=== PATIENT | male | born 1985 | race Caucasian/White ===

== ENCOUNTER 2017-01-04 08:41 | Emergency (ER) | payer SELFPAY ==
[~2017-01-04] VITALS: Ht 177.8 cm; Wt 110.5 kg
[~2017-01-04 08:41] MED LIST: NO ROUTINE MEDS
--- OUTSIDE RECORDS SUMMARY | 2017-01-04 08:50 | XMS REPORT | Continuity of Care Document ---
Author Author [facility] Organization [facility] Address Unknown Phone Unavailable Support Name Relationship Address Phone EUGENE STROUD MD Caregiver [address] [place] [id number] Unavailable PEARL MATTHEW Next Of Kin [address] [place] [address] Insurance Providers Guarantor HermelindoIsrrael Address [address] [place] [address] Email [email or web address] Payer Self Pay Subscriber's Name HermelindoIsrrael Relationship 18 Self Advance Directives Directive Response Recorded Date/Time Advanced Directives Type None 10/06/16 12:47pm Chief Complaint and Reason for Visit Chief Complaint Puncture Wound Reason for Visit [id number] Problems Active Problems Medical Problem Onset Date Status Apical alveolar abscess Unknown Acute Gingivitis Unknown Acute Pain, dental Unknown Acute Past Problems Medical Problem Onset Date Frequent nosebleeds Unknown Skin abrasion Unknown Swelling of knee joint, left Unknown Medications Current Home Medications Medication Dose Units Route Directions Days Qty Instructions Start Date No Routine Meds 10/06/16 Past Home Medications Medication Directions Ordered Status Albuterol 17 Gm Aerosol, As Needed 07/24/11 Discontinued Clonazepam 1 Mg Tablet, 1 Mg Oral Twice A Day 07/24/11 Discontinued Metoprolol Succinate 25 Mg Tab.sr.24h, 25 Mg Oral As Needed 07/24/11 Discontinued Prosazine , 40 Bedtime 07/24/11 Discontinued Trazodone Hcl 50 Mg Tablet, 2 Tab Oral Bedtime 07/24/11 Discontinued Social History Social History Problem Response Recorded Date/Time Onset Date Status Hx Substance Use No 10/06/2016 12:47pm Not Applicable Not Applicable Hx Alcohol Use Y OCCASIONAL 10/06/2016 12:47pm Not Applicable Not Applicable Tobacco Usage smoke 03/08/2016 8:14am Not Applicable Not Applicable Query Response Start Date Stop Date Smoking Status Current every day smoker Hospital Discharge Instructions No hospital discharge instructions. Plan of Care Discharge Date 10/06/16 1:05pm Disposition 01 DISCHARGED HOME, SELF-CARE Condition at Discharge Stable Instructions/Education Provided DI for Abrasion Prescriptions See Medication Section Additional Instructions/Education Your tetanus was updated today. I do want you to keep the skin clean and dry. If any increase in redness/tenderness/or drainage then please return to ER or follow up with your primary care provider. Care Plan and Goals Physician Care Plan Problem:Skin abrasion, TDAP update Goal: Follow up with primary care provider Instructions: Take medications and follow care plan as discussed/written Functional Status No functional status results. 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 Given Tdap 10/06/16 Administered 1 [id number] [place] [employer] 10/06/16 Query Response on File Recorded Date/Time Hx Tetanus, Diptheria, Pertussis Y 07/24/11 12/19/12 9:21am Hx Tetanus Diptheria Y 10/06/2016 10/06/16 1:01pm Hx Tetanus, Diptheria, Pertussis Y 07/24/11 12/19/12 9:21am Tetanus Diptheria Vaccine History UNKNOWN-NEEDS UPDATE 10/06/16 12:47pm Tdap Vaccine Hx GIVEN TODAY 10/06/16 1:01pm Vital Signs Acute Vital Signs Vital Response Date/Time Temperature (Fahrenheit) 98.5 deg F (96.8 - 99.1) 10/06/2016 1:05pm Temperature (Calculated Celsius) 36.01380 degrees C (36.0 - 37.3) 10/06/2016 1:05pm Pulse Rate (adult) 89 bpm (60 - 100) 10/06/2016 1:05pm Respiratory Rate 16 breaths/min (10 - 20) 10/06/2016 1:05pm O2 Sat by Pulse Oximetry 97 % (90 - 100) 10/06/2016 1:05pm Blood Pressure 144/85 mm Hg 10/06/2016 1:05pm Height (Feet) 5 feet 10/06/2016 12:47pm Height (Inches) 10.00 inches 10/06/2016 12:47pm Weight (Kilograms) 113.900 kg 10/06/2016 12:47pm Body Mass Index (BMI) 36.0 10/06/2016 12:47pm Results No known relevant diagnostic tests, laboratory data and/or discharge summary. Procedures No known history of procedures. Encounters Encounter Location Arrival/Admit Date Discharge/Depart Date Attending Provider Departed Emergency Room [facility] 10/06/16 12:39pm 10/06/16 1: 05pm EUGENE STROUD MD Recent Diagnosis
[2017-01-04 08:55] VITALS: Ht 177.8 cm; Wt 110.5 kg
--- NOTE | 2017-01-04 10:15 | NUR ---
PROVIDER DR. KENDALL IN ROOM WITH PT.
--- NOTE | 2017-01-04 10:24 | NUR ---
PROVIDER DR. Alexia KENDALL IN ROOM WITH PT.
[2017-01-04] MEDS ORDERED: ORPHENADRINE 60mg/2ml INJECTION IM ONE (10:30)
[2017-01-04] MEDS ORDERED: KETOROLAC 60mg/2ml INJECTION IM ONE (10:30)
--- NOTE | 2017-01-04 10:31 | ERPDOC ---
Departure Disposition Decision Date: Jan 04, 2017 Disposition Decision Time: 11:44 Disposition: 01 DISCHARGED HOME, SELF-CARE Impression Impression Impression: Primary Impression: Back pain Back pain location: low back pain Chronicity: acute Back pain laterality: right Sciatica presence: without sciatica Qualified Codes: M54.5 - Low back pain Additional Impression: Lumbar strain Encounter type: initial encounter Qualified Codes: S39.012A - Strain of muscle, fascia and tendon of lower back, initial encounter Severity: Mild Condition: Improved Seen By: Physician only Referrals: Your Doctor Call For appointment Patient Instructions: Acute Low Back Pain (ED), Low Back Strain (ED), Lower Back Exercises (ED) Problems/Meds/Labs Reviewed?: Yes Medications reviewed and manag: Yes Departure Forms: Return to Work/School Permit Return to Work/School Date: Jan 06, 2017 Follow up care ordered?: Yes Mental Status: Alert, Oriented Scripts Cyclobenzaprine HCl (Cyclobenzaprine HCl) 10 Mg Tablet 1 TAB PO TID for SPASMS, #15 TAB 0 Refills Prov: LEENA KENDALL DO 01/04/17 Ibuprofen (Ibuprofen) 800 Mg Tablet 1 TAB PO Q8H Y for PAIN, #30 TAB 0 Refills Prov: LEENA KENDALL DO 01/04/17 HPI - Back Pain General Chief Complaint: Low Back Pain or Injury Stated Complaint: BACK PAIN Time Seen by Provider: 10:16 Source: patient (Patient presents with a 1 day complaint of lumbar paraspinal muscle pain and spasm, after moving a refrigerator yesterday. ) Exam Limitations: no limitations HPI - Back Pain Occurred At: home Onset/Timing: Changing over time Duration: 12-24 hrs Pain/Severity Scale: Now & Worst: 6/10 Severity/Quality: moderate Location: lumbar spine, paraspinous muscles (Lumbar) Radiation: other (none) Method of Injury/Context: twisted Modifying Factors: WORSE WITH: movement Associated Sypmtoms: lower back pain, muscle spasms, other (no saddle anesthesia), DENIES: fever, loss of bladder control, loss of bowel control, numbness in legs/feet, sensory/motor loss, tingling in legs/feet, weakness Hx of Similar Symptoms: No Allergies: Coded Allergies: Coconut (Verified Allergy, Unknown, 01/04/17) Past History Past Medical History Metabolic: hypertension ENMT: dental problems Respiratory: COPD, asthma GI: GERD Psychological: bipolar, depression, other Surgical History General: tonsils Joint: knee Vaccines Hx Tetanus Diptheria: Yes (10/06/2016) Hx Tetanus, Diptheria, Pertuss: Yes (07/24/11) Social History Smoking Status: Unknown if ever smoked Does patient use chewing tobac: No # of Packs/Tins per Day: 1 # of Years: 20 Second Hand Exposure: No Substance Use Type: does not use Alcohol Intake: none Housing: house Service: No Current Occupational Status: employed Occupational Hazard: No Advance Directives: Yes Full Code Record Review Pertinent history updated: Yes Review of Systems Constitutional Constitutional: DENIES: chills, fever Eyes Lids/Accessories: DENIES: erythema, swelling ENMT Ears: DENIES: erythema, pain Balance: DENIES: ataxia, vertigo Sinuses: DENIES: congestion, rhinorrhea Mouth/Throat: DENIES: sore throat Cardiovascular Cardiac: DENIES: chest pain, dyspnea on exertion, orthopnea Rhythm/Rate: DENIES: tachycardia Pulmonary Respiratory: DENIES: cough, dyspnea, sputum GI Upper Abdomen: DENIES: nausea, pain, vomiting Lower Abdomen: DENIES: constipation, diarrhea, pain General: DENIES: dysuria Musculoskeletal General: DENIES: cramps, pain, weakness Integumentary Skin: DENIES: color change, itching, rash Neurological General: DENIES: ataxia, change in strength, headache, numbness, poor coordination, seizures, syncope, vertigo, weakness Psychiatric Psychiatric: DENIES: anxiety, depression, nervousness Hematologic/Lymphatic Hematologic/Lymphatic: DENIES: anemia Allergic/Immunological Allergic/Immunoligical: DENIES: sneezing All other Systems All Other Systems: Reviewed and Negative Physical Exam General General Nourishment: well nourished, well developed, appears stated age, adult General Body Habitus: well groomed Vitals and Pain First Documented Vital Signs Date Time Temp Pulse Resp B/P Pulse Ox O2 Delivery O2 Flow Rate FiO2 01/04/17 08:55 98.8 96 16 138/84 96 Room Air Weight: Kilograms: 110.500 Height (feet): 5 Height (inches): 10.00 Triage Pain Scale: RN VS reviewed by Provider: Yes Eyes (brief) Eyes Brief: found: EOMI, PERRL ENMT (brief) ENMT Brief: FOUND: TM clear, TM good light reflex, mucosa moist, NOT FOUND: pharnyx erythema Neck (brief) Neck: FOUND: trachea midline, NOT FOUND: adenopathy, tenderness, tracheal deviation Respiratory (brief) Respiratory: FOUND: clear all dye, equal bilaterally Cardiovascular (brief) Cardiac: FOUND: regular rate, regular rhythm Capillary Refill: <2 sec Pulses: all distal extremities, equal, strong Abdomen (brief) Abdominal Brief: FOUND: bowel normo active x4, soft, NOT FOUND: distended, tender Lymphatic (brief) Lymphatic Brief: NOT FOUND: adenopathy Musculoskeletal (brief) Musculoskeletal Brief: FOUND: spasm, tenderness (Lumbar Paraspinal muscles) Integumentary (brief) Integumentary Brief: FOUND: pink, warm Neurologic (brief) Neurological Brief: FOUND: CN w/o gross def to obs, DTR 2/4 all extremities, gait w/o gross def to obs, motor-no gross deficits, sensory-no gross deficits, NOT FOUND: ataxia Psychiatric (brief) Psychiatric Brief: FOUND: alert, attentive, normal affect, oriented Differential Diagnoses Considering: Disc Herniation, Compression Fracture, Fracture, Lumbar Sprain, Lumbar Strain, Thoracic Sprain, Thoracic Strain, Other Progress Results/Orders Orders Procedure Category Date Status Time Ketorolac (Toradol) PHA 01/04/17 Complete 10:30 Orphenadrine (Norflex) PHA 01/04/17 Complete 10:30 Lumbar Spine 2-3 Views RAD 01/04/17 Resulted Medications Current ED Medications Ketorolac Tromethamine (Toradol) 60 mg O ONCE IM Last administered on 11:05; Start 01/04/17 at 10:30; Stop 01/04/17 at 10:31; Status DC Orphenadrine Citrate (Norflex) 60 mg O ONCE IM Last administered on 01/04/17 11:05; Start 01/04/17 at 10:30; Stop 01/04/17 at 10:31; Status DC Progress Progress Patient is feeling better following medications. I recommended CT ro further evaluated his age indeterminate Compression at L1, but the patent refused Patient will follow with his PCP, returning to the ER with worsening symptoms LEENA KENDALL DO Jan 04, 2017 10:31
--- NOTE | 2017-01-04 10:45 | NUR ---
XRAY PT TO XRAY.
--- NOTE | 2017-01-04 10:57 | NUR ---
XRAY PT RETURNED FROM XRAY.
--- NOTE | 2017-01-04 11:06 | DI ---
Indication: ITS.REASON: back pain after moving a refrigerator yesterday. PROCEDURE: LUMBAR SPINE 3 VIEWS: Encounter: Initial Comparison: None Findings: Alignment of the lumbar spine is normal. There is irregularity of the anterosuperior endplate of the L1 vertebra. The remaining lumbar vertebral bodies appear normal. Disk spaces are normal. No significant degenerative changes appreciated. Impression: Superior endplate irregularity of L1 could be due to prior Schmorl's node or acute mild compression deformity. CT or MRI could be performed for further evaluation as clinically indicated. .
--- NOTE | 2017-01-04 11:24 | NUR ---
REPORT REPORT FROM ROYER ABREU. JOSE LUIS STOCKTON
[2017-01-04] MEDS ORDERED: IBUP-1547 PO (11:47)
[2017-01-04] MEDS ORDERED: CYCL-375 PO (11:47)
[2017-01-04 12:00] VITALS: BP 120/56; PULSE 84; RESP 16; TEMP 98; O2SAT 97
--- NOTE | 2017-01-04 12:00 | NUR ---
DEPART VERBAL AND WRITTEN DISCHARGE INSTRUCTIONS GIVEN AND UNDERSTOOD. CONDITION STABLE. RELEASED AMBULATORY FROM ER WITH FRIENDS.
== END 2017-01-04 12:00 | disposition home or self-care (01) ==
LOC: ED 08:41
DX: S39.012A Strain of muscle, fascia and tendon of lower back, initial encounter (principal); X50.9XXA Other and unspecified overexertion or strenuous movements or postures, initial encounter; Y93.89 Activity, other specified; Y92.009 Unspecified place in unspecified non-institutional (private) residence as the place of occurrence of the external cause; Y99.8 Other external cause status
CPT/HCPCS: 96372

== ENCOUNTER 2017-02-17 07:33 | Emergency (ER) | payer SELFPAY ==
[~2017-02-17] VITALS: Ht 177.8 cm; Wt 111.9 kg
[~2017-02-17 07:33] MED LIST changes: +CYCL-375 PO; +IBUP-1547 PO
[2017-02-17 07:35] VITALS: Ht 177.8 cm; Wt 111.9 kg
--- OUTSIDE RECORDS SUMMARY | 2017-02-17 07:39 | XMS REPORT | Continuity of Care Document ---
Author Author [facility] Organization [facility] Address Unknown Phone Unavailable Support Name Relationship Address Phone LEENA KENDALL DO Caregiver [address] [place] [address] Unavailable AMRITA LORENZO Next Of Kin [address] [place], [place] [id number] Insurance Providers Guarantor HermelindoIsrrael Address [address] [place] [address] Email [email or web address] Payer Self Pay Subscriber's Name HermelindoIsrreal Relationship 18 Self Advance Directives Directive Response Recorded Date/Time Advanced Directives Type None 01/04/17 10:10am Chief Complaint and Reason for Visit Chief Complaint Low Back Pain or Injury Reason for Visit Back pain [id number] Problems Active Problems Medical Problem Onset Date Status Apical alveolar abscess Unknown Acute Back pain Unknown Acute Gingivitis Unknown Acute Lumbar strain Unknown Acute Pain, dental Unknown Acute Past Problems Medical Problem Onset Date Frequent nosebleeds Unknown Skin abrasion Unknown Swelling of knee joint, left Unknown Medications Current Home Medications Medication Dose Units Route Directions Days Qty Instructions Start Date Cyclobenzaprine Hcl 10 Mg Tablet 1 Tab Oral Three Times A Day for Spasms 15 Tablet 01/04/17 Ibuprofen 800 Mg Tablet 1 Tab Oral Every 8 Hours as needed for Pain 30 Tablet 01/04/17 No Routine Meds 10/06/16 Past Home Medications [...] Date/Time Onset Date Status Hx Substance Use N RECOVERING 01/04/2017 10:10am Not Applicable Not Applicable Hx Alcohol Use Y OCCASIONAL 01/04/2017 10:10am Not Applicable Not Applicable Tobacco Usage smoke 03/08/2016 8:14am Not Applicable Not Applicable Query Response Start Date Stop Date Smoking Status Current every day smoker Hospital Discharge Instructions No hospital discharge instructions. Plan of Care Discharge Date 01/04/17 12:00pm Disposition 01 DISCHARGED HOME, SELF-CARE Condition at Discharge Improved Instructions/Education Provided Low Back Strain (ED) Acute Low Back Pain (ED) Lower Back Exercises (ED) Forms Provided Return to Work/School Permit Prescriptions See Medication Section Referrals Your Doctor Note: Call For appointment Care Plan and Goals Physician Care Plan Problem: 1. Low Back Pain 2. Lumbar Strain 3. Possible Mild Compression deformity at L-1 Goal: 1. Follow up with primary care provider in 1-2 days 2. Return to the ER as needed Instructions: 1. Take medications and follow care plan as discussed/written Functional Status No functional status results. 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19237 degrees C (36.0 - 37.3) 01/04/2017 12:00pm Pulse Rate (adult) 84 bpm (60 - 100) 01/04/2017 12:00pm Respiratory Rate 16 breaths/min (10 - 20) 01/04/2017 12:00pm O2 Sat by Pulse Oximetry 97 % (90 - 100) 01/04/2017 12:00pm Blood Pressure 120/56 mm Hg 01/04/2017 12:00pm Blood Pressure 120/56 mm Hg 01/04/2017 12:00pm Height (Feet) 5 feet 01/04/2017 8:55am Height (Inches) 10.00 inches 01/04/2017 8:55am Weight (Kilograms) 110.500 kg 01/04/2017 8:55am Body Mass Index (BMI) 34.0 01/04/2017 8:55am Results Name: ISRRAEL ALLAN Unit #: [id number] : 1985 Sex: M Admit Date: Loc / Svc: ED Discharge Date: DIAGNOSTIC IMAGING REPORT Report #: [id number] [facility] [place] Indication: ITS.REASON: back pain after moving a refrigerator yesterday. PROCEDURE: LUMBAR SPINE 3 VIEWS: Encounter: Initial Comparison: None Findings: Alignment of the lumbar spine is normal. There is irregularity of the anterosuperior endplate of the L1 vertebra. The remaining lumbar vertebral bodies appear normal. Disk spaces are normal. No significant degenerative changes appreciated. Impression: Superior endplate irregularity of L1 could be due to prior Schmorl's node or acute mild compression deformity. CT or MRI could be performed for further evaluation as clinically indicated. . Procedures Procedure Status Date Provider(s) Immunization admin Completed 10/06/16 Encounters Encounter Location Arrival/Admit Date Discharge/Depart Date Attending Provider Departed Emergency Room [facility] 01/04/17 8:41am 01/04/17 12: 00pm LEENA KENDALL DO Departed Emergency Room [facility] 10/06/16 12:39pm 10/06/16 1: 05pm EUGENE STROUD MD Recent Diagnosis
--- NOTE | 2017-02-17 07:45 | NUR ---
DR STROUD IN
--- NOTE | 2017-02-17 07:48 | ERPDOC ---
Departure Disposition Decision Date: February 17, 2017 Disposition Decision Time: 08:40 Disposition: 01 DISCHARGED HOME, SELF-CARE Impression Impression Impression: Primary Impression: Pharyngitis Severity: Moderate Condition: Stable Seen By: Physician only Patient Instructions: Strep Throat (ED) Problems/Meds/Labs Reviewed?: Yes Medications reviewed and manag: Yes Follow up care ordered?: Yes Mental Status: Alert Scripts Cephalexin (Keflex) 500 Mg Capsule 2 CAP PO BID, #40 CAP Prov: EUGENE STROUD MD 02/17/17 HPI - EENT General General Chief Complaint: Throat Pain/Injury Stated Complaint: CANNOT SWALLOW Time Seen by Provider: 07:48 HPI - EENT General Initial Comments 31-year-old male with sore throat for 2 days. Patient woke up this morning with increasing soreness of the throat, felt like he had a fever and had pain with swallowing. No difficulty breathing. He has not been around anyone sick, except at work. 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 No history of throat or lung problems. No Tobacco use. Allergies: Coded Allergies: Coconut (Verified Allergy, Unknown, 02/17/17) Past History Past Medical History Metabolic: hypertension ENMT: dental problems Respiratory: COPD, asthma GI: GERD Psychological: bipolar, depression, other Surgical History General: tonsils Joint: knee Vaccines Hx Tetanus Diptheria: Yes (10/06/2016) Hx Tetanus, Diptheria, Pertuss: Yes (07/24/11) Social History Smoking Status: Never smoker Does patient use chewing tobac: No # of Packs/Tins per Day: 1 # of Years: 20 Second Hand Exposure: No Substance Use Type: does not use Alcohol Intake: none Housing: house Service: No Current Occupational Status: employed Occupational Hazard: No Advance Directives: Yes Full Code Record Review Pertinent history updated: Yes Review of Systems ENMT Mouth/Throat: see HPI All other Systems All Other Systems: Reviewed and Negative Physical Exam General General Nourishment: well nourished, well developed, appears stated age Distress Description Patient osseous or throat, winces when he coughs. Vitals and Pain First Documented Vital Signs Date Time Temp Pulse Resp B/P Pulse Ox O2 Delivery O2 Flow Rate FiO2 02/17/17 07:35 97.8 76 20 124/82 97 Room Air Weight: Kilograms: 111.900 Height (feet): 5 Height (inches): 10.00 Triage Pain Scale: Normal Exams: Head: Normocephalic w/o trauma Chest/Resp: Clear all dye, with good airflow, and symmetry bilaterally CV: Regular rate and rhythm, without murmur or gallop, Pulses 2+ all extremities, capillary refill, <2 seconds all ext., no pedal edema noted Abdomen: Bowel sounds positive, soft, non-tender, non-distended, no hepatosplenomegaly, masses or bruits noted Lymphatic: No lymphadenopathy, or lymphedema noted Musculoskeletal: No tenderness, or deformity noted, good range of motion, all extremities Neurologic: Patient is alert, and oriented, cranial nerves, motor/sensory/ cerebellar, exams w/o gross deficits, to observation Psychiatric: Patient exhibits, appropriate attention, emotion and affect Neck (brief) Comments Posterior oropharynx is red, obviously irritated. Anterior cervical nodes palpable bilateral. no enlargement or abscess palpable Differential Diagnoses Considering: Abscess, Sinusitis, Other (strep) Progress Results/Orders Orders Procedure Category Date Status Time Strep A Antigen Screen LAB 02/17/17 Complete 07:48 Ceftriaxone (Rocephin) PHA 02/17/17 Complete 08:00 Group A Strep Culture KATHY 02/17/17 In Process 08:12 Lab Results Laboratory Tests Test 02/17/17 07:57 Group A Streptococcus Screen Negative Medications Current ED Medications Ceftriaxone Sodium (Rocephin) 1 g O ONCE IM Last administered on 02/17/17t 08: 13; Start 02/17/17 at 08:00; Stop 02/17/17 at 08:01; Status DC Progress Progress Rapid strep neg. Pt given 1 gram rocephin im and sent with script for keflex 500mg, 2 po bid to cover non strep pharyngitis. EUGENE STROUD MD February 17, 2017 07:48
[2017-02-17] MEDS ORDERED: LIDOCAINE 1% (10mg/ml) 2ml SDV ONE (08:00)
[2017-02-17] MEDS ORDERED: CEFTRIAXONE 1 GRAM INJECTION IM ONE (08:00)
[2017-02-17] MEDS ORDERED: CEPH-583 PO (08:42)
[2017-02-17 08:55] VITALS: BP 133/95; PULSE 86; RESP 16; TEMP 98; O2SAT 96
--- NOTE | 2017-02-17 08:55 | NUR ---
DISMISSAL INSTRUCTIONS REVIEWED. PT VERBALIZES UNDERSTANDING. DISCHARGED AMB
== END 2017-02-17 08:55 | disposition home or self-care (01) ==
LOC: ED 07:33
DX: J02.9 Acute pharyngitis, unspecified (principal)
CPT/HCPCS: 87081; 87430; 96372